=== PATIENT | male | born 1960 | race Caucasian/White ===

== ENCOUNTER → 2017-07-08 | Outpatient (CLI) | payer OTHER ==
--- NOTE | ~2017-07-08 | EKG ---
[address] [employer] 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
== END ==
LOC: LITH 12:22
DX: N20.0 Calculus of kidney (principal)

== ENCOUNTER 2017-08-11 03:59 | Emergency (ER) | payer BC, OTHER ==
[~2017-08-11] VITALS: Ht 180.3 cm; Wt 88.9 kg
[2017-08-11] MEDS ORDERED: NOHOMEMEDICATIONS (04:10)
[2017-08-11] MEDS ORDERED: PAXIL10 MG (04:10)
[2017-08-11] MEDS ORDERED: NAPROSYN500 MG PO (04:39)
[2017-08-11] MEDS ORDERED: ROBAXIN500 MG PO (04:39)
[2017-08-11 05:53] VITALS: BP 122/72
== END 2017-08-11 05:56 | disposition home or self-care (01) ==
LOC: ER 03:59
DX: M54.42 Lumbago with sciatica, left side (principal)